=== PATIENT | male | born 1985 | race Caucasian/White ===

== ENCOUNTER 2020-07-29 06:50 | Outpatient (NON) | payer OTHER, SELFPAY ==
[2020-07-29 21:44] LABS: SARS-CoV-2 RNA PCR Negative
== END 2020-07-29 06:51 ==
PROVIDERS: Visit Provider Family Medicine
DX: R06.00 Dyspnea, unspecified (principal); Z20.822 Contact with and (suspected) exposure to COVID-19
CPT/HCPCS: C9803; U0003; U0005